=== PATIENT | female | born 1985 | race Caucasian/White ===

== ENCOUNTER 2019-08-01 08:45 | Emergency (ER) | payer OTHER ==
[~2019-08-01] VITALS: Ht 173 cm; Wt 80.8 kg
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
[2019-08-01 10:45] VITALS: BP 126/80
== END 2019-08-01 10:45 | disposition home or self-care (01) ==
LOC: ER 08:47
DX: M54.5 Low back pain (principal); R40.2142 Coma scale, eyes open, spontaneous, at arrival to emergency department; R40.2252 Coma scale, best verbal response, oriented, at arrival to emergency department; R40.2362 Coma scale, best motor response, obeys commands, at arrival to emergency department; V49.40XA Driver injured in collision with unspecified motor vehicles in traffic accident, initial encounter
CPT/HCPCS: 99282